=== PATIENT | male | born 1935 | race Caucasian/White ===

== ENCOUNTER → 2016-05-30 | Day surgery (SDC) | payer OTHER ==
[2016-05-30] VITALS (10 sets, daily range): BP systolic 114–156; BP diastolic 52–70
[~2016-05-30] VITALS: Ht 182.9 cm; Wt 92.1 kg
[~2016-05-30] MED LIST: ASPIRIN325 MG ORAL; Akten 3.5% 1ml Btl ONE; BSS 15ml BTL ONE; BSS 500ml btl ONE; CALCIUM500 M2 PO; Dexamethasone 4mg/ml vial ONE; Diclofenac Sod 0.1% Op Soln ONE; DiphenhydrAMINE 50mg/ml Inj IVP PRN; DiphenhydrAMINE 50mg/ml Inj ONE; EPINEPHrine 1mg/1ml Amp ONE; Gatifloxacin Opth Solution 0.5% ONE; LASIX40 MG ORAL; LIPITOR40 MG ORAL; LR 1000ml 1,000 ML IVLG SCH; LR 1000ml ONE; Labetalol 5mg/ml 20ml vial IV PRN; Lidocaine 1% MPF 10mg/ml 5ml ONE; NALTREXONE HCL50 MG PO; NS Irrig 1000ml ONE; Phenylephrine 2.5% Op Soln ONE; Povidone-Iodine 5% opth solution ONE; Sodium Hyaluronate 14 mg/ml 0.85ml ONE; Sterile Water Irrig 1000ml IRRIG ONE; THIAMINE HCL100 MG ORAL; Tobradex Opth Susp 2.5ml ONE; Tropicamide 1% Opth Soln ONE; UROXATRAL10 M2 PO; VIBRAMYCIN100 MG ORAL; VITAMIN B125000 MCG PO; ZOCOR20 M1 ORAL; fentaNYL 100 mcg/2 mL IV ONE
[2016-05-30] MEDS: Akten 3.5% 1ml Btl RIGHT EYE SCH ×3 (07:00→07:36)
[2016-05-30] MEDS: Phenylephrine 2.5% Op Soln RIGHT EYE SCH ×3 (07:00→07:37)
[2016-05-30] MEDS: Diclofenac Sod 0.1% Op Soln RIGHT EYE SCH ×3 (07:00→07:36)
[2016-05-30] MEDS: Tobradex Opth Susp 2.5ml RIGHT EYE SCH ×3 (07:00→07:37)
[2016-05-30] MEDS: Tropicamide 1% Opth Soln RIGHT EYE SCH ×3 (07:00→07:37)
[2016-05-30] MEDS: Gatifloxacin Opth Solution 0.5% RIGHT EYE SCH ×3 (07:01→07:37)
--- NOTE | 2016-05-30 07:40 | Pre-Procedure Note/Attestation ---
Pre-Procedure Note/Attestation Complete Prior to Procedure Planned Procedure: right Procedure Narrative: cataract extraction with implant right eye Indications for Procedure Pre-Operative Diagnosis: cataract right eye Attestation I attest that I discussed the nature of the procedure; its benefits; risks and complications; and alternatives (and the risks and benefits of such alternatives ), prior to the procedure, with the patient (or the patient's legal disability representative). I attest that, if there was a reasonable possibility of needing a blood transfusion, the patient (or the patient's legal disability representative) was given the [facility] standardized written summary, pursuant to the [place] Blood Safety Act ([place] Health and Safety Code # 1645, as amended). I attest that I re-evaluated the patient just prior to the surgery and that there has been no change in the patient's H&P, except as documented below: ILEANA VERDIN May 30, 2016 07:39
--- NOTE | 2016-05-30 07:49 | Anethesia Preoperative Eval ---
Anesthesia Pre-op PMH/ROS General Date of Evaluation: May 30, 2016 Anesthesiologist: Mike ASA Score: ASA 3 Mallampati Score Class I : Soft palate, uvula, fauces, pillars visible Class II: Soft palate, uvula, fauces visible Class III: Soft palate, base of uvula visible Class IV: Only hard plate visible Mallampati Classification: Class II Surgeon: Chino Diagnosis: Right cataract Surgical Procedure: Right cataract extraction with IOL Anesthesia History: none Social History: alcohol use Family History: no anesthesia problems Allergies: Coded Allergies: No Known Allergies (Verified Allergy, Mild, 11/22/09) Medications: see eMAR Past Medical History Cardiovascular: Reports: HTN, other - HLD, Denies: CAD, [place], arrhythmia, valve dz Pulmonary: Denies: COPD, [place], asthma, other Gastrointestinal/Genitourinary: Reports: GERD, other - prostate Cancer, Denies: CRI, ESRD Neurologic/Psychiatric: Denies: CVA, TIA, dementia, depression/anxiety, other Endocrine: Denies: DM, hypothyroidism, other, steroids HEENT: Denies: BARROW (L), [place]OW (R), cataract (L), cataract (R), glaucoma, other Hematology/Immune: Denies: DVT, anemia, bleeding disorder, other Musculoskeletal/Integumentary: Denies: DDD, DJD, OA, RA, edema, other Other: obesity PSxH Narrative: Left catarat, prostatectomy Anesthesia Pre-op Phys. Exam Physician Exam Last Vital Signs Date Time Temp Pulse Resp B/P Pulse Ox O2 Delivery O2 Flow Rate FiO2 05/30/16 07:06 98.0 54 20 125/64 98 Room Air Constitutional: NAD Cardiovascular: RRR Respiratory: CTA Airway Exam Mallampati Score: Class II MO: full ROM: full Anesthesia Pre-op A/P Labs see chart Studies Pre-op Studies: EKG - sr Risk Assessment & Plan Assessment: ASA III Plan: MAC Status Change Before Surgery: No Pre-Antibiotics Drug: N/A TRUE WOODS M.D. May 30, 2016 07:49
--- NOTE | 2016-05-30 07:49 | Immediate Post-Op Evaluation ---
Immediate Post-Op Evalulation Immediate Post-Op Evalulation Procedure: Right cataract extraction with IOL Date of Evaluation: May 30, 2016 Time of Evaluation: 08:51 IV Fluids: 400 Blood Products: 0 Estimated Blood Loss: 0 Urinary Output: 0 Blood Pressure Systolic: 146 Blood Pressure Diastolic: 70 Pulse Rate: 51 Respiratory Rate: 17 O2 Sat by Pulse Oximetry: 99 Temperature (Fahrenheit): 98 Pain Score (1-10): 0 Nausea: No Vomiting: No Complications 0 Patient Status: awake, reacts, patent, none Hydration Status: adequate Drug: N/A TRUE WOODS M.D. May 30, 2016 07:49
--- NOTE | 2016-05-30 07:50 | 48 Hour Post Anesthesia Eval ---
Post Anesthesia Evaluation Procedure: Right cataract extraction with IOL Date of Evaluation: May 30, 2016 Blood Pressure Systolic: 141 0: 78 Pulse Rate: 59 Respiratory Rate: 16 O2 Sat by Pulse Oximetry: 99 Airway: patent Nausea: No Vomiting: No Pain Intensity: 0 Hydration Status: adequate Cardiopulmonary Status: at baseline Mental Status/LOC: patient returned to baseline Post-Anesthesia Complications: 0 Follow-up care needed: ready to discharge TRUE WOODS M.D. May 30, 2016 07:50
--- NOTE | 2016-05-30 08:48 | Brief Operative Note ---
Immediate Post Operative Note Operative Note Pre-op Diagnosis: cataract right eye Procedure: phacoemulsification of cataract with implant right eye Post-op Diagnosis: same as pre-op Surgeon: ileana green [employer] Panels: none Anesthesiologist: noah lilly Anesthesia: MAC Specimen: none Complications: none Condition: stable Estimated Blood Loss: none Drains: none Implant(s) used?: Yes ILEANA GREEN May 30, 2016 08:48
--- NOTE | 2016-05-30 13:37 | Operative Note - Dictated ---
DATE OF OPERATION: 05/30/2016 PREOPERATIVE DIAGNOSIS: Cataract, right eye. POSTOPERATIVE DIAGNOSIS: Cataract, right eye. PROCEDURE: Phacoemulsification of cataract, right eye with placement of posterior chamber intraocular lens. SURGEON: Tremaine Magana M.D. BIG 6 DEALER: None. ANESTHESIA: MAC/topical. ANESTHESIOLOGIST: Katherin Virk M.D. INDICATION FOR PROCEDURE: Poor vision, right eye. DESCRIPTION OF FINDINGS: Nuclear sclerotic cataract, right eye. DESCRIPTION OF PROCEDURE: The patient received a topical anesthetic block consisting of 3.5% Akten eyedrops. The eye was then prepped and draped in usual manner. A lid speculum was placed. An operating Zeiss microscope was positioned. A temporal corneal groove was made with the iveth blade. A SuperSharp blade made a stab incision at the 12 o'clock position. A 0.1 mL of 1% nonpreserved intracameral lidocaine was injected. Healon was instilled into the anterior chamber and a 2.5/2.8 mm trapezoidal iveth blade was used to complete the temporal corneal wound. A cystotome was used to create an anterior capsular flap. Utrata forceps were used to complete the capsulorrhexis. BSS on a cannula was used to hydrodissect the nucleus. The lens nucleus was phacoemulsified in a phaco-fracture technique. Remaining cortical material was removed with I/A and the posterior capsule polished with the I/A on Cap vac. Healon was instilled in a capsular bag and anterior chamber, and an Pimentel foldable one-piece posterior chamber intraocular lens model [id number], power 26.0 diopter, serial #[id number] was placed in the injector. The lens was put into the capsular bag. The I/A tip was used to remove the Healon and position the lens. The wound edge was hydrated with BSS and a blunt-tipped cannula. The wound was checked and found to be watertight. The lid speculum was removed and a drop of TobraDex and Zymaxid was placed. A clear plastic shield was taped over the eye. The patient tolerated the procedure well and left the operating room in good condition. Tremaine Magana M.D. [place] [place]: Lili JOB#: [id number] CC: Maite De Leon M.D.
== END | disposition home or self-care (01) ==
LOC: SUR 06:12
DX: H25.11 Age-related nuclear cataract, right eye (principal); I25.10 Atherosclerotic heart disease of native coronary artery without angina pectoris; K21.9 Gastro-esophageal reflux disease without esophagitis; E78.5 Hyperlipidemia, unspecified; I70.0 Atherosclerosis of aorta; R60.9 Edema, unspecified; E66.9 Obesity, unspecified; Z68.27 Body mass index [BMI] 27.0-27.9, adult; F10.20 Alcohol dependence, uncomplicated; D63.8 Anemia in other chronic diseases classified elsewhere; Z85.828 Personal history of other malignant neoplasm of skin; Z85.46 Personal history of malignant neoplasm of prostate; Z85.89 Personal history of malignant neoplasm of other organs and systems; Z79.82 Long term (current) use of aspirin; Z79.899 Other long term (current) drug therapy
CPT/HCPCS: 66984; J0171; J1100; J1200; J3010; J7120; V2632; 94003; 94150